=== PATIENT | female | born 1990 | race Caucasian/White ===

== ENCOUNTER 2016-06-29 18:39 | Emergency (ER) | payer MEDICAID ==
[~2016-06-29] VITALS: Ht 157.5 cm; Wt 91.0 kg
[2016-06-29] MEDS ORDERED: KETOROLAC 30 MG/1 ML IM ONE (19:30)
[2016-06-29 20:11] LABS: HEMOGLOBIN 13.9 g/dL (11.7-16.4)
[2016-06-29 20:22] LABS: BLOOD UREA NITROGEN 12 mg/dL (7-18)
[2016-06-29 20:34] LABS: IS PT STATUS REG ER OR PRE ER? YES
[2016-06-29] MEDS ORDERED: LORazepam 2 MG/ML, 1ML ONE (20:51)
[2016-06-29] MEDS ORDERED: KETOROLAC 30 MG/1 ML ONE (20:51)
[2016-06-29] MEDS ORDERED: LORazepam 1MG TABLET PO ONE (21:00)
[2016-06-29] MEDS ORDERED: KETOROLAC 30 MG/1 ML IVPush ONE (21:00)
[2016-06-29] MEDS ORDERED: PLEASE ENTER HEIGHT AND WEIGHT MC SCH (21:00)
[2016-06-29] MEDS ORDERED: LORazepam 2 MG/ML, 1ML IVPush ONE (21:00)
[2016-06-29 22:25] VITALS: BP 128/78
== END 2016-06-29 22:27 | disposition home or self-care (01) ==
LOC: ED 21:42
DX: R07.89 Other chest pain (principal); F41.1 Generalized anxiety disorder
CPT/HCPCS: 36415; 71020; 80048; 82040; 84443; 84484; 85025; 85379; 93005; 96374; 96375; 99285; J1885; J2060

== ENCOUNTER 2016-08-14 19:41 | Emergency (ER) | payer MEDICAID ==
[~2016-08-14] VITALS: Ht 157.5 cm; Wt 93.2 kg
[2016-08-14] MEDS ORDERED: LORazepam 1MG TABLET PO ONE (21:00)
[2016-08-14] MEDS ORDERED: LORazepam 1MG TABLET ONE (21:27)
[2016-08-14 21:56] VITALS: BP 116/95
== END 2016-08-14 22:02 | disposition home or self-care (01) ==
LOC: ED 21:16
DX: F41.8 Other specified anxiety disorders (principal)
CPT/HCPCS: 93005; 99283

== ENCOUNTER 2018-02-24 10:01 | Emergency (ER) | payer MEDICAID ==
[~2018-02-24] VITALS: Ht 165.1 cm; Wt 65.0 kg
[2018-02-24] MEDS ORDERED: beta blocker (10:19)
[2018-02-24] MEDS ORDERED: LORA2TAB99 PO (10:19)
[2018-02-24] MEDS ORDERED: ALPR1TAB2 PO (10:19)
[2018-02-24] MEDS ORDERED: MORPHINE SULFATE 4 MG/ML, 1ML ONE (10:27)
[2018-02-24] MEDS ORDERED: DIPHENHYDRAMINE 50 MG/ML, 1ML ONE (10:27)
[2018-02-24] MEDS ORDERED: METOCLOPRAMIDE 5 MG/ML, 2ML ONE (10:27)
[2018-02-24] MEDS ORDERED: METOCLOPRAMIDE 5 MG/ML, 2ML IVPush ONE (10:30)
[2018-02-24] MEDS ORDERED: MORPHINE SULFATE 4 MG/ML, 1ML IVPush PRN (10:30)
[2018-02-24] MEDS ORDERED: DIPHENHYDRAMINE 50 MG/ML, 1ML IVPush ONE (10:30)
[2018-02-24 10:43] LABS: MEAN CORPUSCULAR HEMOGLOBIN 31.7 pg (27.0-34.8); MEAN CORPUSCULAR HGB CONC 34.1 g/dL (32.4-35.8); MEAN CORPUSCULAR VOLUME 93.1 fL (80-100); MEAN PLATELET VOLUME 8.4 fL (7.4-10.4); PLATELET COUNT 326 x10^3/uL (130-400); RED BLOOD COUNT 4.56 x10^6/uL (3.82-5.3); RED CELL DISTRIBUTION WIDTH 13.6 % (9.6-15.2)
[2018-02-24 10:50] LABS: ALANINE AMINOTRANSFERASE 60 U/L (12-78); ALBUMIN 3.4 g/dL (3.4-5.0); ANION GAP 9 mmol/L (5-15); CALCIUM 8.6 mg/dL (8.5-10.1); CHLORIDE 112 mmol/L (98-107); CREATININE 0.67 mg/dL (0.55-1.02)
[2018-02-24 10:55] LABS: ALKALINE PHOSPHATASE 87 U/L (45-117); BILIRUBIN,TOTAL 0.2 mg/dL (0.2-1.0); TOTAL PROTEIN 6.6 g/dL (6.4-8.2)
[2018-02-24 11:11] LABS: MD YES
[2018-02-24 11:13] LABS: LYMPH#(MANUAL) 3.67 x10^3/uL (1-3.4); LYMPHS% (MANUAL) 19 % (22-44); REACTIVE LYMPHS # (MANUAL) 0.39 x10^3/uL (0-0); REACTIVE LYMPHS % (MANUAL) 2 % (0-0)
[2018-02-24 11:14] LABS: EOS#(MANUAL) 0.58 x10^3/uL (0.0-0.4); EOS% (MANUAL) 3 % (1-7); MONOS#(MANUAL) 1.93 x10^3/uL (0.3-2.7); MONOS% (MANUAL) 10 % (2-9); SEG#(MANUAL) 12.74 x10^3/uL (1.8-6.8); SEGS% (MANUAL) 66 % (42-75)
[2018-02-24 11:15] LABS: <PLATELET ESTIMATE> ADEQUATE; <PLT MORPHOLOGY> NORMAL PLT MORPH; <RBC MORPHOLOGY> NORMAL
[2018-02-24 12:33] VITALS: BP 115/76
== END 2018-02-24 12:37 | disposition home or self-care (01) ==
LOC: ED 12:03
DX: K80.20 Calculus of gallbladder without cholecystitis without obstruction (principal); R11.2 Nausea with vomiting, unspecified; D72.829 Elevated white blood cell count, unspecified; R10.84 Generalized abdominal pain; F17.200 Nicotine dependence, unspecified, uncomplicated
CPT/HCPCS: 36415; 76700; 80053; 83690; 84703; 85025; 96374; 96375; 99284; J1200; J2765